=== PATIENT | male | born 1935 | race Caucasian/White ===

== ENCOUNTER 2018-11-16 08:01 | Outpatient (CLI) | payer MEDICARE, BC ==
--- NOTE | 2018-11-16 09:30 | CT ---
CT LUMBAR SPINE: Date: 11/16/18 Multiple axial tomograms obtained through the lumbar spine with multiplanar reconstruction. INDICATION: Lumbar radiculopathy and myelopathy. Comparison made to CT lumbar spine dated 03/31/13. FINDINGS: Lumbar vertebra maintain height. Degenerative disc changes are seen throughout the lumbar spine, most prominent below L2. Vacuum phenomenon seen at all disc spaces below L2. Minimal posterolisthesis at L3-4 is slightly more prominent than on the prior exam. Slight posterolisthesis at L4-5 and at L5-S1 appear similar to the prior exam. At L1-2, no significant disc bulge or protrusion. No central canal or foraminal stenosis. At L2-3, broad based disc bulge flattens the thecal sac. Mild facet hypertrophy. Mild central canal s tenosis, slightly more prominent than on the prior study. At L3-4, mild broad based disc bulge flattens the anterior thecal sac. Mild facet hypertrophy. Mild c entral canal stenosis, similar in appearance to the prior study. No significant foraminal stenosis. At L4-5, mild posterolisthesis and degenerative disc change. Mild diffuse disc bulge. Facet hypertrop hy. Mild central canal stenosis and mild bilateral foraminal stenosis, which appears similar to prior exam. At L5-S1, slight posterolisthesis is stable from prior exam. No significant disc bulge or protrusion. Mild facet hypertrophy. No significant central canal or foraminal stenosis. Aorta is calcified and mildly ectatic, measuring up to 2.5 cm. There is intimal calcification which i s from the outer calcified wall of the aorta in the mid abdomen suggesting a focal dissecti on. This extends into a dilated left common iliac artery. The left common iliac measures up to 2.2 cm . These aortic and iliac artery findings appear stable when compared to the prior exam and were descr ibed on the prior study. IMPRESSION: 1. There has been progression of degenerative disc changes below L2 throughout the lumbar spine when compared to prior study. There is mild central canal stenosis at several levels as described above. 2. Atherosclerotic changes of abdominal aorta with ectasia. Question focal dissection at lower abdom inal aorta which extends into a mildly aneurysmal left common iliac artery. These aortic and iliac ar андрей findings appear stable when compared to the prior exam. POS: [facility]
== END 2018-11-16 08:02 | disposition home or self-care (01) ==
LOC: SCSMRI 08:01 → SCSCT 08:02
PROVIDERS: ATTEND Anesthesiology
DX: M51.16 Intervertebral disc disorders with radiculopathy, lumbar region (principal); M51.06 Intervertebral disc disorders with myelopathy, lumbar region; M48.061 Spinal stenosis, lumbar region without neurogenic claudication; I77.811 Abdominal aortic ectasia
CPT/HCPCS: 72131

== ENCOUNTER 2019-01-11 14:08 | Outpatient (CLI) | payer MEDICARE, BC ==
--- NOTE | 2019-01-11 14:48 | CT ---
HEAD CT NONCONTRAST: Date: 01/11/19 INDICATION: Memory loss. FINDINGS: There is prominence of the ventricular system, slightly out of proportion in size to cerebral sulci. No intracranial hemorrhage or mass effect. There is mild chronic ischemic disease. No acute fluid lev el of the imaged paranasal sinuses. IMPRESSION: 1. Ventriculomegaly, out of proportion to size of cerebral sulci. Recommend clinical correlation to exclude evidence of normal pressure hydrocephalus. 2. Mild chronic ischemic disease. 3. No acute intracranial hemorrhage or mass effect. POS: [facility]
== END 2019-01-11 14:09 | disposition home or self-care (01) ==
LOC: BICCT 14:08
PROVIDERS: ATTEND Psychiatry & Neurology Neurology
DX: G31.1 Senile degeneration of brain, not elsewhere classified (principal); G93.89 Other specified disorders of brain; I67.82 Cerebral ischemia
CPT/HCPCS: 70450